=== PATIENT | female | born 1985 | race American Indian/Alaskan Native ===

== ENCOUNTER 2020-06-01 08:07 | Emergency (ER) | payer SELFPAY ==
--- NOTE | 2020-06-01 08:32 | Emergency Department Report ---
Minor Respiratory - HPI Chief Complaint: Medical Clearance Stated Complaint: BODYACHES Time Seen by Provider: 06/01/20 08:31 Pain Location: Facial, Throat, Nose, Ear, Chest Severity: mild Minor Respiratory: Yes Sore Throat, Yes Able to Tolerate Fluids, No Rhinorrhea, No Ear Pain, No Cough, No Sick Contacts, No Hemoptysis, No Chest Pain, No Shortness of Breath, No Fever Other History: Patient is a pleasant 34-year-old -[place] female that comes to the emergency room with a 1 week history of persistent body ache, cough and sore throat. She endorses some ear pain on the right side. She also reports chest pain but only when she coughs. She has no sputum. Patient states that she has postnasal drip is making her nauseated. She denies diarrhea. She denies constipation. She denies fever or chills. She denies known exposure to COVID-19. Patient reports that she was seen in [facility] last week and had a negative flu, strep and Covid test. However her symptoms persist so she comes to the ER for recheck today. She has not seen her primary care provider. She has not taken any medications at home prior to coming to the ER. Patient is ambulatory nontoxic and [id number] on exam. ED Review of Systems ROS: Stated complaint: BODYACHES Other details as noted in HPI Comment: All other systems reviewed and negative ED Past Medical Hx - Past Medical History Previous Medical History?: No - Surgical History Past Surgical History?: No - Family History Family history: no significant - Social History Smoking Status: Current Every Day Smoker Substance Use Type: None - Medications Home Medications: Home Medications Medication Instructions Recorded Confirmed Last Taken Type Amoxicillin [Trimox CAP] 500 mg PO BID #20 capsule 06/01/20 Unknown Rx Cetirizine HCl [ZyrTEC] 10 mg PO DAILY #30 capsule 06/01/20 Unknown Rx Fluticasone [Flonase] 1 spray NS QDAY #1 bottle 06/01/20 Unknown Rx Ondansetron [Zofran Odt] 4 mg PO Q8HR PRN #10 tab.rapdis 06/01/20 Unknown Rx Minor Respiratory Exam - Exam General: Vital signs noted. No distress. Alert and acting appropriately. HEENT: Yes Pharyngeal Erythema (Patient reports postnasal drip that makes her cough especially when lying flat.), Yes Moist Mucous Membranes, Yes Frontal Tenderness (Mild frontal tenderness), No Pharyngeal Exudates, No Rhinorrhea, No Conjuctival Injection, No Maxillary Tenderness Ear: Both TM Erythema (Mild edema bilaterally), Neither TM Bulge, Neither EAC Pain, Neither EAC Discharge Neck: Yes Supple, No Adenopathy Lungs: Yes Good Air Exchange, No Wheezes, No Ronchi, No Stridor, No Cough, No Labored Respirations, No Retractions, No Use of Accessory Muscles, No Other Abnormal Lung Sounds Heart: Yes Regular, No Murmur Abdomen: Yes Normal Bowel Sounds, No Tenderness, No Peritoneal Signs Skin: No Rash, No Edema Neurologic: Alert and oriented, no deficits. Musculoskeletal: Unremarkable. ED Course Vital Signs 06/01/20 08:10 Temperature 97.6 F Pulse Rate 79 Respiratory 20 Rate Blood Pressure 149/96 O2 Sat by Pulse 96 Oximetry ED Medical Decision Making - Radiology Data Radiology results: report reviewed, image reviewed No acute process - Medical Decision Making Vital Signs 06/01/20 08:10 Temperature 97.6 F Pulse Rate 79 Respiratory 20 Rate Blood Pressure 149/96 O2 Sat by Pulse 96 Oximetry Patient medicated for nausea with some Zofran. She is taking p.o. Patient is ambulatory nontoxic and [id number] on reexam. Blood pressure by provider 135/80. Patient has no history of hypertension; she denies chest pain or shortness of breath. I told patient her blood pressure was a little bit elevated in triage and that she should monitor it. She verbalizes understanding Given that the patient has had persistent symptoms for over a week I will go ahead and treat her with antibiotics. She has no tachycardia or hypotension or fever at this time. There is no consolidation on her chest x-ray. No evidence of Covid. Patient being discharged home with discharge plan of care. Patient has been given a referral to primary care. She understands if she is not better she needs to follow-up. - Differential Diagnosis RO PNA/URI Critical care attestation.: If time is entered above; I have spent that time in minutes in the direct care of this critically ill patient, excluding procedure time. ED Disposition Clinical Impression: URI (upper respiratory infection) Disposition: -01 TO HOME OR SELFCARE Is pt being admited?: No Does the pt Need Aspirin: No Condition: Stable Instructions: Viral Respiratory Infection, [id number] Additional Instructions: REST HYDRATE WELL MEDS ORDERED TODAY MOTRIN OR TYLENOL FOR PAIN FOLLOW UP WITH PCP NEXT WEEK FOR RECHECK -REFERRAL BELOW Prescriptions: Fluticasone [Flonase] 1 spray NS QDAY #1 bottle Amoxicillin [Trimox CAP] 500 mg PO BID #20 capsule Ondansetron [Zofran Odt] 4 mg PO Q8HR PRN #10 tab.rapdis PRN Reason: Vomiting Cetirizine HCl [ZyrTEC] 10 mg PO DAILY #30 capsule Referrals: MICHAEL MCINTYRE MD [Staff Physician] - 3-5 Days Time of Disposition: 09:00
[2020-06-01] MEDS ORDERED: ONDANSETRON 4 MG ODT TAB PO ONE (08:58)
--- NOTE | 2020-06-01 09:02 | XRay Report ---
CHEST 2 VIEWS INDICATION: COUGH. COMPARISON: None FINDINGS: SUPPORT DEVICES: None. HEART: Within normal limits. LUNGS/PLEURA: No acute air space or interstitial disease. No pneumothorax. ADDITIONAL FINDINGS: None. IMPRESSION: 1. No acute findings. Signer Name: Baudilio Lewis MD Signed: 06/01/2020 8:57 AM Workstation Name: [id number]
[2020-06-01 09:43] VITALS: BP 125/88
[2020-06-01] MEDS ORDERED: predniSONE 20 MG TAB PO NR (10:00)
== END 2020-06-01 09:44 | disposition home or self-care (01) ==
LOC: ED 08:07
DX: J06.9 Acute upper respiratory infection, unspecified (principal); F17.200 Nicotine dependence, unspecified, uncomplicated; Z79.899 Other long term (current) drug therapy
CPT/HCPCS: 71046; 99283; J7512; Q0162

== ENCOUNTER 2020-10-19 17:40 | Emergency (ER) | payer SELFPAY ==
[2020-10-19 20:18] VITALS: BP 136/79
--- NOTE | 2020-10-19 20:48 | Emergency Department Report ---
Upper Extremity - HPI Chief Complaint: Extremity Injury, Upper Stated Complaint: FINGER INJURY Time Seen by Provider: 10/19/20 20:43 Upper Extremity: Right Index Finger (pain and swelling) Occurred When: >5 Days (2 weeks ago) Severity: moderate Symptoms: Yes Pain with Movement, Yes Swelling, No Deformity, No Limited Range of Movement, No Numbness, No Weakness, No Bruising/Ecchymosis, No Laceration or Abrasion Other History: 34-year-old female presents to the ER today with complaints of right index finger pain and swelling. Patient states that symptoms started about 2 weeks ago. She states that she noticed that the pain started about 30 minutes after she came from the nail shop and getting acrylic nails put on. She states that a couple days prior to going to the nail shop she did accidentally hit her right index finger but she states that at the time she did not have any pain. She states that after getting her nails done she noticed that the pain in her right index finger continued to get more painful and yesterday she noticed that the finger was swollen and even worse this morning. She was able to remove the acrylic nail today. She denies any obvious bleeding or pus drainage. She has not taken anything for pain since it started. She denies any fever or chills. ED Review of Systems ROS: Stated complaint: FINGER INJURY Other details as noted in HPI Comment: All other systems reviewed and negative Constitutional: denies: chills, fever Eyes: denies: eye pain, eye discharge, vision change ENT: denies: ear pain, throat pain, dental pain, hearing loss, epistaxis, congestion Respiratory: denies: cough, orthopnea, shortness of breath, SOB with exertion, SOB at rest, wheezing Cardiovascular: denies: chest pain, palpitations, dyspnea on exertion, edema, syncope, paroxysmal nocturnal dyspnea Gastrointestinal: denies: abdominal pain, nausea, diarrhea, constipation, hematemesis, melena, hematochezia Genitourinary: denies: urgency, dysuria, discharge Musculoskeletal: joint swelling, arthralgia Skin: denies: rash, lesions, change in color, change in hair/nails, pruritus Neurological: denies: headache, weakness, numbness, paresthesias, confusion, abnormal gait, vertigo Psychiatric: denies: anxiety, depression, auditory hallucinations, visual hallucinations, homicidal thoughts, suicidal thoughts Hematological/Lymphatic: denies: easy bleeding, easy bruising, swollen glands ED Past Medical Hx - Past Medical History Previous Medical History?: No - Surgical History Past Surgical History?: No - Social History Smoking Status: Current Every Day Smoker Substance Use Type: None - Medications Home Medications: Home Medications Medication Instructions Recorded Confirmed Last Taken Type Amoxicillin [Trimox CAP] 500 mg PO BID #20 capsule 06/01/20 Unknown Rx Cetirizine HCl [ZyrTEC] 10 mg PO DAILY #30 capsule 06/01/20 Unknown Rx Fluticasone [Flonase] 1 spray NS QDAY #1 bottle 06/01/20 Unknown Rx Ondansetron [Zofran Odt] 4 mg PO Q8HR PRN #10 tab.rapdis 06/01/20 Unknown Rx Ibuprofen [Motrin] 600 mg PO Q8H PRN #30 tablet 10/19/20 Unknown Rx cephALEXin [Keflex] 500 mg PO Q6HR #40 capsule 10/19/20 Unknown Rx Upper Extremity Exam - Exam General: Vital signs noted. No distress. Alert and acting appropriately. Head and Torso: No HEENT Abnormality, No Neck Tenderness, No Chest/Lungs Abnormality, No Abdominal Tenderness, No Back Tenderness Shoulder Exam: Yes Normal Range of Motion in Shoulder, No Shoulder Tenderness, No Clavicle Tenderness, No Shoulder Deformity, No AC Joint Tenderness Arm Exam: No Arm/Humerus Tenderness, No Arm Deformity Elbow: Yes Normal Range of Motion in Elbow, No Elbow Tenderness, No Elbow Deformity Forearm: No Forearm Tenderness, No Forearm Deformity, No Pain with Pronation, No Pain with Supination Wrist: Yes Normal ROM in Wrist, No Wrist Tenderness, No Wrist Deformity, No Snuffbox Tenderness, No Pain with Axial Thumb Compression Hand: Yes Normal ROM in Digit(s), No Hand Tenderness, No Hand Deformity, No Digit Tenderness (There is moderate tenderness to palpation over the fat pad of the right index finger and also around the hyponychium there is subtle erythema noted to those areas. No streaking redness. No diffuse swelling noted to the finger. No pus drainage or induration or fluctuance noted.), No Digit(s) Deformity, No Tendon Dysfunction CMS Exam: Yes Normal Distal Pulses, Yes Normal Capillary Refill, Yes Normal Distal Sensation, No Broken Skin ED Course Vital Signs 10/19/20 20:14 Temperature 98.8 F Pulse Rate 61 Respiratory 16 Rate Blood Pressure 136/79 O2 Sat by Pulse 100 Oximetry ED Medical Decision Making - Radiology Data Radiology results: report reviewed Patient: SYDNEY GOLD MR#: [id number] : 1985 Acct:[id number] Age/Sex: 34 / F ADM Date: 10/19/20 Loc: ED Attending Dr: Ordering Physician: MEHDI BROWN Date of Service: 10/19/20 Procedure(s): XR finger(s) 2+V RT Accession Number(s): [id number] cc: MEHDI BROWN Fluoro Time In Minutes: XR finger(s) 2+V RT INDICATION / CLINICAL INFORMATION: finger pain and swelling. COMPARISON: None available. FINDINGS: BONES/JOINT(S): No acute fracture or subluxation. No significant degenerative changes. SOFT TISSUES: No significant abnormality. ADDITIONAL FINDINGS: None. Signer Name: Ridge López MD Signed: 10/19/2020 9:05 PM Workstation Name: [id number] Transcribed By: IAN Dictated By: Ridge López MD Electronically Authenticated By: Ridge López MD Signed Date/Time: 10/19/202104 DD/ 03 TD/TT: - Medical Decision Making X-ray of the finger shows nothing acute. Right index finger exam is concerning for possible infection especially given her history of pain started after going to the nail shop. No obvious paronychia or felon, or infected tenosynovitis at this time. Discussed x-ray results with patient. Discussed concern for possible infection with patient. She will be started on Keflex and also given ibuprofen for pain. Patient expressed understanding of instructions and agree with plan. Patient stable at time of discharge. Critical care attestation.: If time is entered above; I have spent that time in minutes in the direct care of this critically ill patient, excluding procedure time. ED Disposition Clinical Impression: Cellulitis of finger, Finger contusion Disposition: - TO HOME OR SELFCARE Is pt being admited?: No Does the pt Need Aspirin: No Condition: Stable Instructions: Contusion, Cellulitis, Adult, [id number] Additional Instructions: Recommend just warm water soaks. Do not use any more alcohol or peroxide. Take the antibiotics and ibuprofen as prescribed. I would recommend avoiding any nail procedures until fully healed. Follow-up closely with your primary care doctor. Return to the ER if your symptoms changes or worsens in any way. Prescriptions: cephALEXin [Keflex] 500 mg PO Q6HR #40 capsule Ibuprofen [Motrin] 600 mg PO Q8H PRN #30 tablet PRN Reason: Pain Referrals: MICHAEL MCINTYRE MD [Staff Physician] - 3-5 Days Time of Disposition: 21:28
--- NOTE | 2020-10-19 21:09 | XRay Report ---
XR finger(s) 2+V RT INDICATION / CLINICAL INFORMATION: finger pain and swelling. COMPARISON: None available. FINDINGS: BONES/JOINT(S): No acute fracture or subluxation. No significant degenerative changes. SOFT TISSUES: No significant abnormality. ADDITIONAL FINDINGS: None. Signer Name: Ridge López MD Signed: 10/19/2020 9:05 PM Workstation Name: [id number]
== END 2020-10-19 21:40 | disposition home or self-care (01) ==
LOC: ED 17:40
DX: S60.00XA Contusion of unspecified finger without damage to nail, initial encounter (principal); L03.011 Cellulitis of right finger; X58.XXXA Exposure to other specified factors, initial encounter; Y93.89 Activity, other specified; Y92.89 Other specified places as the place of occurrence of the external cause; Y99.8 Other external cause status
CPT/HCPCS: 99283

== ENCOUNTER 2020-12-01 13:04 | Emergency (ER) | payer SELFPAY | END 2020-12-01 13:05 | disposition left against medical advice (07) | LOC: ED 13:04 | DX: J02.9 Acute pharyngitis, unspecified (principal); Z53.21 Procedure and treatment not carried out due to patient leaving prior to being seen by health care provider ==